=== PATIENT | female | born 1965 ===

== ENCOUNTER 2018-10-10 10:19 | Outpatient (CLI) | payer OTHER ==
[~2018-10-10] VITALS: Ht 152.4 cm; Wt 61.2 kg
== END 2018-10-10 10:35 | disposition home or self-care (01) ==
LOC: OFIC 805 10:19
DX: H90.3 Sensorineural hearing loss, bilateral (principal)

== ENCOUNTER 2018-11-14 09:00 | Outpatient (CLI) | payer OTHER ==
[~2018-11-14] VITALS: Ht 152.4 cm; Wt 61.2 kg
== END 2018-11-14 09:15 | disposition home or self-care (01) ==
LOC: OFIC 805 09:00
DX: H90.3 Sensorineural hearing loss, bilateral (principal)